=== PATIENT | female | born 1970 | race Caucasian/White ===

== ENCOUNTER 2021-09-01 09:08 | Emergency (ER) | payer OTHER ==
[~2021-09-01] VITALS: Ht 170.2 cm; Wt 86.2 kg
[2021-09-01] MEDS ORDERED: PAXIL40 MG PO (09:37)
[2021-09-01] MEDS ORDERED: BIRTH CONTROL (09:38)
[2021-09-01] MEDS ORDERED: METFORMIN HCL500 M3 PO (09:38)
[2021-09-01] MEDS ORDERED: TRAZODONE HCL50 MG PO (09:38)
[2021-09-01] MEDS ORDERED: LIPITOR10 MG PO (09:38)
[2021-09-01 10:10] LABS: ABSOLUTE BASOPHILS 0.1 thou/uL (0.0-0.2); ABSOLUTE EOSINOPHILS 0.3 thou/uL (0.0-0.7); ABSOLUTE LYMPHOCYTES 1.7 thou/uL (0.8-5.3); ABSOLUTE MONOCYTES 0.4 thou/uL (0.0-1.2); ABSOLUTE NEUTROPHILS 4.5 thou/uL (1.6-8.1); EOSINOPHILS 4.6 %; HEMATOCRIT 42.9 % (37.0-47.0); HEMOGLOBIN 14.4 gm/dL (12.0-15.0); LYMPHOCYTES 24.3 %; MCH 30.8 pg (26.0-34.0); MCHC 33.6 g/dL (28.0-37.0); MCV 91.7 fL (80.0-100.0); MONOCYTES 5.6 %; MPV 8.8 fl. (7.2-11.1); NUCLEATED RBCS 0 /100WBC; PLATELET COUNT* 270 thou/uL (150-400); POLYS 64.5 %; RBC 4.68 mil/uL (4.20-5.00); RDW-CV 12.9 % (10.5-14.5)
[2021-09-01 10:24] LABS: CALCIUM 9.3 mg/dL (8.5-10.1); CREATININE 1.3 mg/dL (0.6-1.3); POTASSIUM 4.4 mmol/L (3.5-5.1)
[2021-09-01] MEDS ORDERED: NORCO5 PO ×4 (11:12→11:35)
[2021-09-01] MEDS ORDERED: FLEXERIL PO (11:12)
[2021-09-01] MEDS ORDERED: IBUPROFEN 800800 M1 PO (11:12)
--- NOTE | 2021-09-01 11:14 | EKG ---
[place] [address] ELECTROCARDIOGRAM REPORT Name: YUSRAISABELLA Room: [facility]#: [id number] Admission: 09/01/21 Attend Phys: Discharge: Date of : 72 Date of Service: 09/01/21 1008 Report #: [id number] THIS REPORT FOR: //name// [facility] ED Test Date: 2021-09-01 Test Time: 10:08:51 Pat Name: ISABELLA MENG Department: Room: Gender: [employer]: : 1970 Requested By: Azael Self Order Number: [id number] MD: Nasir Vale Measurements [employer]vals [employer] Rate: 49 P: 37 KS: 141 QRS: 13 QRSD: 91 T: 24 QT: 441 QTc: 399 Interpretive Statements Sinus bradycardia Low voltage, precordial leads No previous ECG available for comparison Electronically Signed On 09-01-2021 11:14:02 [employer]OBBY ATTENDANT by Nasir Vale [email or web address] <ELECTRONICALLY SIGNED> By: Nasir Vale MD, [facility] 09/01/21 1114 1008 07 Nasir Vale MD, FACC /EPI
[2021-09-01] MEDS ORDERED: DIAZEPAM 5 MG5 M1 PO (11:35)
[2021-09-01 11:51] VITALS: BP 109/67
== END 2021-09-01 11:51 | disposition home or self-care (01) ==
LOC: M.ERS 09:08
PROVIDERS: Emergency Medicine
DX: M62.830 Muscle spasm of back (principal); M54.6 Pain in thoracic spine; Z79.899 Other long term (current) drug therapy